=== PATIENT | female | born 1950 | race Caucasian/White ===

== ENCOUNTER 2017-07-22 10:25 | Inpatient (IN) | payer SELFPAY ==
[~2017-07-22] VITALS: Ht 157.5 cm; Wt 78.0 kg
[~2017-07-22 10:25] MED LIST: ASPIRIN 81MG TABLET PO SCH; NITROGLYCERIN OINT 1GM/INCH UDPKT TD SCH; UNKNOWN MEDS
[2017-07-22 11:31] LABS: BASOPHILS % 0.5 % (0.0-2.0); EOSINOPHILS % 1.1 % (0.0-5.0); HEMATOCRIT. 40.1 % (36.0-48.0); HEMOGLOBIN. 13.6 g/dL (12.0-16.0); LYMPHOCYTES % 18.5 % (20.0-50.0); MEAN CORPUSCULAR HEMOGLOBIN 28.4 pg (28.0-32.0); MEAN CORPUSCULAR VOLUME 83.7 fL (81.0-99.0); MEAN PLATELET VOLUME 10.8 fl (7.4-10.4); NEUTROPHILS % 75.9 % (40.0-76.0); PLATELET 180 x1000/uL (130-400); RED BLOOD CELL COUNT 4.79 mill/uL (4.2-5.4); RED CELL DISTRIBUTION WIDTH 15.2 % (11.6-14.6)
[2017-07-22 11:39] LABS: PROTHROMBIN TIME 10.7 sec (9.4-11.6)
[2017-07-22 11:40] LABS: PARTIAL THROMBOPLASTIN TIME 27.8 sec (23.4-31.0)
[2017-07-22 11:46] LABS: CARBON DIOXIDE 26 mEq/L (21-32); CHLORIDE 102 mEq/L (98-107)
[2017-07-22 16:00] VITALS: BP 140/58
[2017-07-22] MEDS ORDERED: GUAIFENESIN 200MG/10ML SUGAR FREE UDC PO PRN (16:30)
[2017-07-22] MEDS ORDERED: LORAZEPAM 2MG/ML CPJ IV PRN (16:30)
[2017-07-22] MEDS ORDERED: ACETAMINOPHEN 325MG TABLET PO PRN (16:30)
[2017-07-22] MEDS ORDERED: KETOROLAC 15MG/ML VIAL IV PRN (16:30)
[2017-07-22] MEDS ORDERED: NITROGLYCERIN 0.4MG TABLET SL SL PRN (16:30)
[2017-07-22] MEDS ORDERED: DIPHENHYDRAMINE 50MG/ML VIAL IV PRN (16:30)
[2017-07-22] MEDS ORDERED: DOCUSATE SODIUM 100MG CAPSULE PO PRN (16:30)
[2017-07-22] MEDS ORDERED: IPRATROPIUM/ALBUTEROL 0.5-3(2.5)MG/3ML NEB INH PRN (16:30)
[2017-07-22] MEDS ORDERED: ONDANSETRON HCL 4MG/2ML VIAL IV PRN (16:30)
[2017-07-22] MEDS ORDERED: CLONIDINE 0.1MG TABLET PO PRN (16:30)
[2017-07-22] MEDS ORDERED: MAGNESIUM/ALUMINUM HYDROXIDE/SIMETHICONE 30ML UDC PO PRN (16:30)
[2017-07-22] MEDS ORDERED: NA PHOS,M-B/NA PHOS,DI-BA ENEMA 118ML PR PRN (16:30)
[2017-07-22 16:47] LABS: ETHANOL BLOOD < 10 mg/dL; HDL CHOLESTEROL 48 mg/dL (40-59); LDL CHOLESTEROL 83 mg/dL (5-100)
[2017-07-22 17:15] VITALS: BP 140/58
[2017-07-22] MEDS ORDERED: OMEP20CA10 PO (17:26)
[2017-07-22] MEDS ORDERED: ENAL2.5T PO (17:27)
[2017-07-22] MEDS ORDERED: METF850T2 PO (17:30)
[2017-07-22] MEDS ORDERED: METF100P3 MC (17:30)
[2017-07-22 17:36] VITALS: BP 140/58
[2017-07-22] MEDS ORDERED: INS7030 SUBCUT (17:36)
[2017-07-22] MEDS ORDERED: NPH,100V SQ (17:36)
[2017-07-22] MEDS ORDERED: METH5TAB68 PO (17:36)
[2017-07-22] MEDS ORDERED: ENOXAPARIN 40MG/0.4ML SYR SUBCUT SCH (18:00)
[2017-07-22] MEDS: SUCRALFATE 1 G/10 ML UDC PO SCH ×2 (18:29→20:55)
[2017-07-22] MEDS ORDERED: DEXTROSE 50% WATER 50ML SYRINGE IV PRN (18:45)
[2017-07-22 20:00] VITALS: BP 148/74
[2017-07-22] MEDS ORDERED: INFLUENZA VIRUS VACCINE 0.5ML SYR IM ONE (20:00)
[2017-07-22] MEDS ORDERED: ZOLPIDEM TARTRATE 5MG TABLET PO PRN (20:30)
[2017-07-22] MEDS: METOPROLOL TARTRATE 25MG TABLET PO SCH (20:56)
[2017-07-22] MEDS: FAMOTIDINE 20MG/2ML VIAL IV SCH (20:56)
[2017-07-22] MEDS: BLOOD SUGAR DIAGNOSTIC STRIP TEST SCH (20:56)
[2017-07-22] MEDS: INSULIN LISPRO 100 UNITS/ML SUBCUT SCH (21:14)
[2017-07-22] MEDS ORDERED: INSULIN DETEMIR UD 100 UNITS/ML SYR SUBCUT SCH (22:00)
[2017-07-22 23:38] LABS: CREATINE KINASE 175 IU/L (26-192); CREATINE KINASE MB FRACTION 1.2 ng/mL (0.5-3.6); TROPONIN I < 0.02 ng/mL (0.00-0.04)
[2017-07-23] VITALS: BP 112/61
[2017-07-23 04:00] VITALS: BP 118/45
[2017-07-23 06:13] LABS: *AMPHETAMINES SCREEN URINE NEGATIVE (NEGATIVE); *BARBITURATES SCREEN URINE NEGATIVE (NEGATIVE); *BENZODIAZEPINES SCREEN URINE NEGATIVE (NEGATIVE); *COCAINE SCREEN URINE NEGATIVE (NEGATIVE); CANNABINOID URINE SCREEN NEGATIVE (NEGATIVE); METHADONE URINE SCREEN NEGATIVE (NEGATIVE); OPIATES URINE SCREEN NEGATIVE (NEGATIVE); PHENCYCLIDINE URINE SCREEN NEGATIVE (NEGATIVE)
[2017-07-23] MEDS: BLOOD SUGAR DIAGNOSTIC STRIP TEST SCH ×2 (06:19→11:30)
[2017-07-23 06:41] LABS: CREATINE KINASE 170 IU/L (26-192); TROPONIN I < 0.02 ng/mL (0.00-0.04)
[2017-07-23] MEDS: SUCRALFATE 1 G/10 ML UDC PO SCH ×2 (06:53→11:54)
[2017-07-23] MEDS: INSULIN LISPRO 100 UNITS/ML SUBCUT SCH ×2 (06:57→11:53)
[2017-07-23] MEDS: FAMOTIDINE 20MG/2ML VIAL IV SCH (08:13)
[2017-07-23] MEDS: METOPROLOL TARTRATE 25MG TABLET PO SCH (08:13)
[2017-07-23] MEDS ORDERED: ASPIRIN 325MG EC TABLET PO SCH (09:00)
[2017-07-23 10:16] VITALS: BP 132/76
[2017-07-23 12:00] VITALS: BP 132/76
== END 2017-07-23 16:30 | disposition home or self-care (01) | DRG 198 ==
LOC: ER 10:25 → 8WST 13:47 → ENRESERV 15:34
PROVIDERS: ADMIT Internal Medicine; ATTEND Internal Medicine
DX: R07.89 Other chest pain (principal); I25.10 Atherosclerotic heart disease of native coronary artery without angina pectoris; I10 Essential (primary) hypertension; E11.9 Type 2 diabetes mellitus without complications; Z79.4 Long term (current) use of insulin; Z79.82 Long term (current) use of aspirin; Z90.49 Acquired absence of other specified parts of digestive tract; Z95.0 Presence of cardiac pacemaker; Z88.0 Allergy status to penicillin
CPT/HCPCS: 36415; 71010; 76705; 80053; 80061; 80305; 82550; 82553; 82962; 83036; 83605; 84484; 85025; 85610; 85730; 93005; 93306; 93970; 99285; G0482; J1650; J1815; J3490